=== PATIENT | male | born 1945 | race Two or more races ===

== ENCOUNTER 2016-11-10 08:55 | Outpatient (RCR) | payer OTHER | END 2016-12-06 | disposition home or self-care (01) | LOC: PTY 08:55 | DX: G62.9 Polyneuropathy, unspecified (principal); R26.81 Unsteadiness on feet ==

== ENCOUNTER 2016-12-21 08:30 | Outpatient (RCR) | payer OTHER | END 2017-01-03 | disposition home or self-care (01) | LOC: PTY 08:30 | DX: S46.912A Strain of unspecified muscle, fascia and tendon at shoulder and upper arm level, left arm, initial encounter (principal); G62.9 Polyneuropathy, unspecified; R26.81 Unsteadiness on feet; Z91.81 History of falling; X58.XXXA Exposure to other specified factors, initial encounter; Y93.9 Activity, unspecified; Y92.9 Unspecified place or not applicable | CPT/HCPCS: 97035; 97110; 97140; 97161; G0283 ==

== ENCOUNTER 2017-01-05 09:00 | Outpatient (RCR) | payer OTHER | END 2017-02-03 | disposition home or self-care (01) | LOC: PTY 09:00 | DX: S46.912A Strain of unspecified muscle, fascia and tendon at shoulder and upper arm level, left arm, initial encounter (principal); G62.9 Polyneuropathy, unspecified; R26.81 Unsteadiness on feet; Z91.81 History of falling; X58.XXXA Exposure to other specified factors, initial encounter; Y93.9 Activity, unspecified; Y92.9 Unspecified place or not applicable | CPT/HCPCS: 97035; 97110; 97140; G0283 ==

== ENCOUNTER 2017-03-07 12:15 | Outpatient (RCR) | payer OTHER | END 2017-04-05 | disposition home or self-care (01) | LOC: PTY 12:15 | DX: G56.22 Lesion of ulnar nerve, left upper limb (principal) | CPT/HCPCS: 97035; 97110; 97140; 97161; G0283 ==

== ENCOUNTER 2017-04-06 15:00 | Outpatient (RCR) | payer OTHER | END 2017-05-05 | disposition home or self-care (01) | LOC: PTY 15:00 | DX: G56.22 Lesion of ulnar nerve, left upper limb (principal) | CPT/HCPCS: 97035; 97110; 97140; G0283 ==